=== PATIENT | female | born 1975 | race Caucasian/White ===

== ENCOUNTER 2017-11-29 11:21 | Inpatient (IN) | payer OTHER ==
[2017-11-29 13:45] VITALS: BMI 29.8
--- NOTE | 2017-11-29 14:16 | HP ---
COWS - Scale Resting Pulse: 1= [place] 81-100 Sweatin=Flushed/Facial Moisture Restless Observation: 3= Extraneous Movement Pupil Size: 1= Pupils >than Normal Bone or Joint Aches: 2= Severe Diffuse Aches Runny Nose/ Eye Tearin= Runny Nose/Eyes GI Upset > 30mins: 3= Vomiting/Diarrhea Tremor Observation: 2= Slight Tremor Visible Yawning Observation: 2= >3x During Session Anxiety or Irritability: 2=Irritable/Anxious Goose Flesh Skin: 0=Smooth Skin COWS Score: 20 CIWA Score - CIWA Score Nausea/Vomitin Muscle Tremors: 3 Anxiety: 3 Agitation: 3 Paroxysmal Sweats: 2 Orientation: 0-Oriented Tacttile Disturbances: 2-Mild Itch/Numbness/Burn Auditory Disturbances: 2-Mild Harshness/Frighten Visual Disturbances: 0-None Headache: 2-Mild CIWA-Ar Total Score: 20 Admission ROS [facility] - HPI Chief Complaint: i need help to stop using heroin,alcohol,marijuana and cocaine Allergies/Adverse Reactions: Allergies Allergy/AdvReac Type Severity Reaction Status Date / Time No Known Allergies Allergy Verified 11/29/17 14:15 History of Present Illness: this 41 years old female with long history of heroin,cocaine,marijuana and alcohol dependence,seeking detox,withdrawal symptom last detox [facility] 08/23/17 to 08/28/17 history of asthma,anxiety and depression longest period of sobriety 2 years Exam Limitations: No Limitations - Ebola screening Have you traveled outside of the country in the last 21 days: No (N) Have you had contact with anyone from an Ebola affected area: No Have you been sick,other than usual withdrawal symptoms: No Do you have a fever: No - Review of Systems Constitutional: Chills, Loss of Appetite, Malaise, Night Sweats, Changes in sleep, Weakness, Unintentional Wgt. Loss EENT: reports: Tearing, Nose Congestion Respiratory: reports: No Symptoms reported Cardiac: reports: No Symptoms Reported GI: reports: Diarrhea, Nausea, Vomiting, Abdominal cramping : reports: No Symptoms Reported Musculoskeletal: reports: Back Pain, Joint Pain, Muscle Pain, Joint Stiffness Integumentary: reports: Dryness Neuro: reports: Headache, Tremors Endocrine: reports: No Symptoms Reported Hematology: reports: No Symptoms Reported Psychiatric: reports: Anxious, Depressed Patient History - Patient Medical History Hx Anemia: No Hx Asthma: Yes Hx Chronic Obstructive Pulmonary Disease (COPD): Yes Hx Cancer: No Hx Cardiac Disorders: No Hx Congestive Heart Failure: No Hx Hypertension: No Hx Hypercholesterolemia: No Hx Pacemaker: No HX Cerebrovascular Accident: No Hx Seizures: No Hx Dementia: No Hx Diabetes: No Hx Gastrointestinal Disorders: No Hx Liver Disease: No Hx Genitourinary Disorders: No Hx Sexually Transmitted Disorders: No Hx Renal Disease (ESRD): No Hx Thyroid Disease: No Hx Human Immunodeficiency Virus (HIV): No (NEGATIVE HX last 08/09) Hx Hepatitis C: No Hx Depression: No Hx Suicide Attempt: No Hx Bipolar Disorder: No Hx Schizophrenia: No Other Medical History: no suicidal,no homicidal - Patient Surgical History Past Surgical History: Yes Hx Neurologic Surgery: No Hx Cataract Extraction: No Hx Cardiac Surgery: No Hx Lung Surgery: No Hx Breast Surgery: No Hx Breast Biopsy: No Hx Abdominal Surgery: No Hx Appendectomy: No Hx Cholecystectomy: No Hx Genitourinary Surgery: No Hx Section: Yes (x3) Hx Orthopedic Surgery: No Hx Hysterectomy: No Other Surgical History: tubal ligation 2004 Anesthesia Reaction: No - PPD History Previous Implant?: Yes Documented Results: Negative w/proof Implanted On Prior [facility] Admission?: Yes Date: 08/25/17 Results: 0mm PPD to be Administered?: No - Reproductive History Patient is a Female of Child Bearing Age (11 -55 yrs old): Yes Last Menstrual Period: 08/03/17 Patient : No - Smoking Cessation Smoking history: Current every day smoker Have you smoked in the past 12 months: Yes Aproximately how many cigarettes per day: 20 Hx Chewing Tobacco Use: No Initiated information on smoking cessation: Yes 'Breaking Loose' booklet given: 11/29/17 - Substance & Tx. History Hx Alcohol Use: Yes Hx Substance Use: Yes Substance Use Type: Alcohol, Cocaine, Heroin Hx Substance Use Treatment: Yes ([facility] 08/23/17 08/28/17) - Substances Abused Heroin Route: Inhalation Frequency: Daily Amount used: 10 BAGS Age of first use: 33 Date of Last Use: 11/28/17 Marijuana/Hashish Route: Smoking Frequency: Daily Amount used: 5 JOINTS Age of first use: 13 Date of Last Use: 11/29/17 Alcohol Route: Oral Frequency: Daily Amount used: FIFTH VODKA/12PK BEER Age of first use: 13 Date of Last Use: 11/28/17 Cocaine Route: Inhalation Frequency: Daily Amount used: 1 GRAM Age of first use: 23 Date of Last Use: 11/26/17 Family Disease History - Family Disease History Family Disease History: Other: Father (alcoholic), Brother (heroin addicton) Admission Physical Exam [facility] - Vital Signs Vital Signs: Vital Signs - 24 hr 11/29/17 13:43 Temperature 98.8 F Pulse Rate 93 H Respiratory 20 Rate Blood Pressure 114/79 - Physical General Appearance: Yes: Moderate Distress, Tremorous, Irritable, Sweating, Anxious HEENTM: Yes: Normal ENT Inspection, MOUNIKA, Pharynx Normal Respiratory: Yes: Within Normal Limits, Lungs Clear, Normal Breath Sounds, No Respiratory Distress Neck: Yes: Within Normal Limits Breast: Yes: Breast Exam Deferred Cardiology: Yes: Within Normal Limits, Regular Rhythm, Regular Rate, S1, S2 Abdominal: Yes: Within Normal Limits, Normal Bowel Sounds, Non Tender, Flat, Soft Genitourinary: Yes: Within Normal Limits Back: Yes: Muscle Spasm Musculoskeletal: Yes: full range of Motion, Back pain, Joint Stiffness, Muscle Pain Extremities: Yes: Within Normal Limits, Normal Range of Motion, Tremors Neurological: Yes: advertising supervisor II-XII NML intact, Alert, Motor Strength 5/5 Integumentary: Yes: Dry Lymphatic: Yes: Within Normal Limits - Diagnostic (1) Opioid dependence with withdrawal Current Visit: No Status: Chronic (2) Alcohol dependence with uncomplicated withdrawal Current Visit: Yes Status: Acute (3) Anxiety and depression Current Visit: Yes Status: Acute (4) Asthma Current Visit: No Status: Chronic Qualifiers: (5) Cocaine dependence Current Visit: Yes Status: Acute Qualifiers: (6) Nicotine dependence Current Visit: Yes Status: Chronic Qualifiers: Cleared for Admission [facility] - Detox or Rehab [facility] Level of Care: Medically Managed Detox Regimen/Protocol: Methadone/Librium [facility] Breath Alcohol Content Breath Alcohol Content: 0 Urine Pregancy Test - Result Urine Test Results: Negative- NO Line Present Urine Drug Screen - Results Drug Screen Negative: No Urine Drug Screen Results: THC-Marijuana, OPI-Opiates, OXY-Oxycodone
[2017-11-29] MEDS ORDERED: MAG HYDROX/AL HYDROX/SIMETH 30 ML UNIT-DOSE CUP PO PRN (14:35)
[2017-11-29] MEDS ORDERED: MAGNESIUM HYDROX 2400MG/30ML ORAL SUSPENSION 30 ML CUP PO PRN (14:35)
[2017-11-29] MEDS ORDERED: guaiFENesin/D-METHORPHAN HB 10 ML UNIT-DOSE CUPS PO PRN (14:35)
[2017-11-29] MEDS ORDERED: MENTHOL/PHENOL 1 EACH UD MM PRN (14:35)
[2017-11-29] MEDS ORDERED: IBUPROFEN 400 MG TABLET (FP) PO PRN (14:35)
[2017-11-29] MEDS ORDERED: P-EPHED 60MG/TRIPROLIDI 2.5MG TABLET PO PRN (14:35)
[2017-11-29] MEDS ORDERED: MAGNESIUM CITRATE 300 ML BOTTLE PO PRN (14:35)
[2017-11-29] MEDS ORDERED: LOPERAMIDE HCL 2 MG CAPSULE PO PRN (14:35)
[2017-11-29] MEDS ORDERED: METHADONE HCL 10 MG TABLET (FOR DETOX USE ONLY) PO ONE ×2 (15:09→23:00)
[2017-11-29] MEDS: ACETAMINOPHEN 325 MG TABLET (FP) PO PRN (15:42)
[2017-11-29] MEDS: chlordiazePOXIDE HCL 25 MG CAPSULE PO SCH ×2 (16:54→22:05)
[2017-11-29 17:02] LABS: URINE APPEARANCE CLOUDY; URINE BILIRUBIN NEGATIVE (NEGATIVE); URINE BLOOD NEGATIVE (NEGATIVE); URINE COLOR DKYELLOW; URINE GLUCOSE (UA) NEGATIVE (NEGATIVE); URINE KETONE TRACE (NEGATIVE); URINE LEUK ESTERASE NEGATIVE (NEGATIVE); URINE NITRITE NEGATIVE (NEGATIVE); URINE PROTEIN NEGATIVE (NEGATIVE)
--- NOTE | 2017-11-29 17:30 | EKG ---
Test Reason : Blood Pressure : / mmHG Vent. Rate : 084 BPM Atrial Rate : 084 BPM P-R Int : 148 ms QRS Dur : 078 ms QT Int : 372 ms P-R-T Axes : 071 049 036 degrees QTc Int : 439 ms NORMAL SINUS RHYTHM NORMAL ECG WHEN COMPARED WITH ECG OF 23-AUG-2017 12:31, NO SIGNIFICANT CHANGE WAS FOUND Confirmed by Herminio Oshea ([id number]) on 11/29/2017 5:29:52 PM Referred By: Confirmed By:Herminio Oshea
[2017-11-29] MEDS: NICOTINE POLACRILEX 2 MG GUM BUC PRN ×2 (17:41→22:08)
[2017-11-29] MEDS: ALBUTEROL SO4 18 GM HFA INHALER IH PRN (17:43)
--- NOTE | 2017-11-29 17:45 | CONSULT ---
[facility] Psychiatric Consult - Data Date of interview: 11/29/17 Admission source: [facility] Identifying data: Pt. is a 41 year old single woman, mother of three, unemployed and homeless. This is one of multiple admissions for patient. Pt. admitted to for cannabis, opiates, alcohol and cocaine dependence. Substance Abuse History: Smoking Cessation. Smoking history: Current every day smoker. Have you smoked in the past 12 months: Yes. Aproximately how many cigarettes per day: 20. Hx Chewing Tobacco Use: No. Initiated information on smoking cessation: Yes. 'Breaking Loose' booklet given: 11/29/17. - Substance & Tx. History. Hx Alcohol Use: Yes. Hx Substance Use: Yes. Substance Use Type : Alcohol, Cocaine, Heroin. Hx Substance Use Treatment: Yes ([facility] 08/23/1703/09) Medical History: Asthma Psychiatric History: Pt. denies h/o psychiatric hospitalizations, suicide attempts, and outpatient care. Pt. was in rehab at [facility] and prescribed doxepine 50mg TID and Mirtazapine 15 mg qhs. Pt. reports medication nonadherence after discharge. Reports not taking psychotrophic medications in approximately 3 months. Pt. requesting to restart medications while in detox. Pt. denies suicidal and homicidal ideation. Physical/Sexual Abuse/Trauma History: Pt. denies h/o psychiatric hospitalizations, suicide attempts, and outpatient care. Pt. Mental Status Exam - Mental Status Exam Alert and Oriented to: Time, Place, Person Cognitive Function: Good Patient Appearance: Well Groomed Mood: Hopeful, Euthymic Affect: Mood Congruent Patient Behavior: Appropriate, Cooperative Speech Pattern: Appropriate Voice Loudness: Normal Thought Process: Goal Oriented Thought Disorder: Paranoid Ideation Hallucinations: Denies Suicidal Ideation: Denies Homicidal Ideation: Denies Insight/Judgement: Poor Sleep: Poorly Appetite: Fair Muscle strength/Tone: Normal Gait/Station: Normal Psychiatric Findings - Problem List ([place] 1, 2,3) (1) Opioid dependence with withdrawal Current Visit: Yes Status: Acute (2) Alcohol dependence Current Visit: Yes Status: Chronic (3) Alcohol dependence with uncomplicated withdrawal Current Visit: Yes Status: Acute (4) Cocaine dependence Current Visit: Yes Status: Acute Qualifiers: (5) Nicotine dependence Current Visit: Yes Status: Chronic Qualifiers: (6) Substance-induced anxiety disorder Current Visit: Yes Status: Chronic (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 Detoxification provided. Mirtzapine 15mg qhs + Doxepin 25mg BID ordered. Benefits and side effects discussed. Verbal consent given. Will continue to monitor.
[2017-11-29] MEDS ORDERED: MIRTAZAPINE 15 MG TABLET (FP) PO SCH (22:00)
[2017-11-29] MEDS: CYCLOBENZAPRINE HCL 10 MG TABLET (FP) PO PRN (22:05)
[2017-11-29] MEDS: THIAMINE HCL 100 MG TABLET (FP) PO SCH (22:05)
[2017-11-29] MEDS: DOXEPIN HCL 25 MG CAPSULE PO SCH (22:05)
[2017-11-29] MEDS: cloNIDine HCL 0.1 MG TABLET PO SCH (22:05)
[2017-11-30] MEDS: CYCLOBENZAPRINE HCL 10 MG TABLET (FP) PO PRN ×2 (05:19→22:07)
[2017-11-30] MEDS: chlordiazePOXIDE HCL 25 MG CAPSULE PO SCH ×4 (05:19→22:07)
[2017-11-30] MEDS: NICOTINE POLACRILEX 2 MG GUM BUC PRN ×5 (05:21→22:09)
[2017-11-30] MEDS: chlordiazePOXIDE HCL 25 MG CAPSULE PO PRN ×3 (08:40→19:48)
--- NOTE | 2017-11-30 09:30 | PN ---
[facility] CIWA - CIWA Score Nausea/Vomitin-Mild Nausea/No Vomiting Muscle Tremors: 4-Moderate,w/Arms Extend Anxiety: 4-Mod. Anxious/Guarded Agitation: 4-Moderately Restless Paroxysmal Sweats: 1-Minimal Palms Moist Orientation: 0-Oriented Tacttile Disturbances: 1-Very Mild Itch/Numbness Auditory Disturbances: 0-None Visual Disturbances: 0-None Headache: 1-Very Mild CIWA-Ar Total Score: 16 S COWS - Scale Resting Pulse: 0= [place] 80 or Below Sweatin= Chills/Flushing Restless Observation: 1= Difficult to Sit Still Pupil Size: 0= Normal to Room Light Bone or Joint Aches: 2= Severe Diffuse Aches Runny Nose/ Eye Tearin= Runny Nose/Eyes GI Upset > 30mins: 2= Nausea/Diarrhea Tremor Observation of Outstretched Hands: 2= Slight Tremor Visible Yawning Observation: 2= >3x During Session Anxiety or Irritability: 1=Feels Anxious/Irritable Goose Flesh Skin: 3=Piloerection COWS Score: 16 [facility] Progress Note (SOAP) Subjective: sweat tremor anxiety joint aches GI upset restlessness irritable Objective: 11/30/17 09:35 Vital Signs Temperature 96.4 F L 11/30/17 06:22 Pulse Rate 79 11/30/17 06:22 Respiratory Rate 18 11/30/17 06:22 Blood Pressure 106/67 11/30/17 06:22 O2 Sat by Pulse Oximetry (%) Laboratory Last Values Urine Color Dkyellow 11/29/17 15:00 Urine Appearance Cloudy 11/29/17 15:00 Urine pH 5.0 (5.0-8.0) 11/29/17 15:00 Ur Specific [place] 1.025 (1.001-1.035) 11/29/17 15:00 Urine Protein Negative (NEGATIVE) 11/29/17 15:00 Urine Glucose (UA) Negative (NEGATIVE) 11/29/17 15:00 Urine Ketones Trace (NEGATIVE) H 11/29/17 15:00 Urine Blood Negative (NEGATIVE) 11/29/17 15:00 Urine Nitrite Negative (NEGATIVE) 11/29/17 15:00 Urine Bilirubin Negative (NEGATIVE) 11/29/17 15:00 Urine Urobilinogen 2.0 mg/dL (0.2-1.0) H 11/29/17 15:00 Ur Leukocyte Esterase Negative (NEGATIVE) 11/29/17 15:00 HIV 1&2 Antibody Screen Negative 11/29/17 15:00 HIV P24 Antigen Negative 11/29/17 15:00 lab noted Assessment: 11/30/17 09:36 withdrawal sx Plan: continue detox
[2017-11-30] MEDS ORDERED: METHADONE HCL 10 MG TABLET (FOR DETOX USE ONLY) PO SCH (10:00)
[2017-11-30 10:26] LABS: HEMATOCRIT 47.1 % (32.4-45.2); HEMOGLOBIN 15.4 GM/dL (10.7-15.3); MCH 31.2 pg (25.7-33.7); MCHC 32.8 g/dl (32.0-36.0); MEAN CELL VOLUME 95.1 fl (80-96); PLATELET COUNT 225 K/MM3 (134-434); RBC 4.95 M/mm3 (3.60-5.2); RDW 15.3 % (11.6-15.6); WHITE BLOOD COUNT 9.4 K/mm3 (4.0-10.0)
[2017-11-30] MEDS: cloNIDine HCL 0.1 MG TABLET PO SCH ×2 (10:29→22:07)
[2017-11-30] MEDS: DOXEPIN HCL 25 MG CAPSULE PO SCH ×2 (10:29→22:07)
[2017-11-30] MEDS: PRENATAL VITAMINS W/ FOLIC ACID TABLET (FP) PO SCH (10:29)
[2017-11-30 10:36] LABS: CHLORIDE 106 mmol/L (98-107); POTASSIUM 4.2 mmol/L (3.5-5.1); SODIUM 141 mmol/L (136-145)
[2017-11-30 10:45] LABS: ALBUMIN 4.1 g/dl (3.4-5.0); ALK PHOS 101 U/L (45-117); ANION GAP 10 (8-16); BILIRUBIN,TOTAL 0.5 mg/dL (0.2-1.0); BLOOD UREA NITROGEN 13 mg/dL (7-18); CALCIUM 9.5 mg/dL (8.5-10.1); CO2 25 mmol/L (21-32); CREATININE 0.9 mg/dL (0.55-1.02); GLUCOSE,RANDOM 80 mg/dL (74-106); SGOT/AST 20 U/L (15-37); SGPT/ALT 26 U/L (12-78); TOT PROT 7.1 g/dl (6.4-8.2)
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
[2017-11-30] MEDS: ALBUTEROL SO4 18 GM HFA INHALER IH PRN ×2 (16:49→22:07)
--- NOTE | 2017-11-30 17:35 | PN ---
Psychiatric Progress Note Vital Signs: Vital Signs Period Temp Pulse Resp BP Sys/[place] Pulse Ox Last 24 Hr 96.4 F-99.3 F 71-86 16-20 92-136/61-93 Date of Session: 11/30/17 Chief Complaint:: "I need another medication for sleep" HPI: Pt. admitted to N for alcohol, cocaine and opiate dependence. ROS: Unremarkable Current Medications: Active Medications Generic Name Dose Route Start Last Admin Trade Name Freq PRN Reason Stop Dose Admin Acetaminophen 650 mg 11/29/17 14:35 11/29/17 15:42 Tylenol - PO 650 mg Q4H PRN Administration FEVER Al Hydroxide/Mg Hydroxide 30 ml 11/29/17 14:35 Mylanta Oral Suspension - PO Q6H PRN DYSPEPSIA Albuterol Sulfate 2 puff 11/29/17 14:41 11/30/17 16:49 Ventolin Hfa Inhaler - IH 2 puff Q4HPO PRN Administration ASTHMA Chlordiazepoxide HCl 25 mg 11/30/17 17:00 11/30/17 16:45 Librium - PO 12/01/17 11:01 25 mg [id number] MUNIR Administration Chlordiazepoxide HCl 15 mg 12/01/17 17:00 Librium - PO 12/02/17 11:01 [id number] MUNIR Chlordiazepoxide HCl 10 mg 12/02/17 17:00 Librium - PO 12/03/17 11:01 [id number] MUNIR Chlordiazepoxide HCl 25 mg 11/29/17 14:35 11/30/17 13:49 Librium - PO 12/02/17 14:36 25 mg Q4H PRN Administration WITHDRAWAL(CONT SUBST) Clonidine 0.1 mg 11/29/17 22:00 11/30/17 10:29 Catapres - PO 0.1 mg BID MUNIR Administration Cyclobenzaprine HCl 10 mg 11/29/17 14:43 11/30/17 05:19 Flexeril - PO 10 mg TID PRN Administration MUSCLE SPASMS Doxepin HCl 25 mg 11/29/17 22:00 11/30/17 10:29 Sinequan - PO 25 mg BID MUNIR Administration Eucalyptus/Menthol/Phenol/Sorbitol 1 each 11/29/17 14:35 Cepastat Lozenge - MM Q4H PRN SORE THROAT Guaifenesin 10 ml 11/29/17 14:35 Robitussin Dm - PO Q6H PRN COUGH Hydroxyzine Pamoate 50 mg 11/29/17 14:35 Vistaril - PO Q4H PRN AGITATION Ibuprofen 400 mg 11/29/17 14:35 Motrin - PO Q6H PRN PAIN LEVEL 4-6 Loperamide HCl 4 mg 11/29/17 14:35 Imodium - PO Q6H PRN DIARRHEA Magnesium Citrate 300 ml 11/29/17 14:35 Citroma - PO Q48H PRN CONSTIPATION Magnesium Hydroxide 30 ml 11/29/17 14:35 Milk Of Magnesia - PO DAILY PRN CONSTIPATION Methadone HCl 15 mg 12/01/17 10:00 Dolophine - PO 12/02/17 10:01 DAILY MUNIR Methadone HCl 5 mg 12/04/17 06:00 Dolophine - PO 12/04/17 06:01 DAILY@0600 MUNIR Methadone HCl 10 mg 12/03/17 10:00 Dolophine - PO 12/03/17 10:01 DAILY MUNIR Nicotine Polacrilex 2 mg 11/29/17 14:35 11/30/17 16:50 Nicorette Gum - BUC 2 mg Q2H PRN Administration NICOTINE REPLACEMENT RX Multivit/Folic Acid/Iron 1 tab 11/30/17 10:00 11/30/17 10:29 Vitamins (Sjr) - PO 1 tab DAILY MUNIR Administration Pseudoephedrine/Triprolidine 1 combo 11/29/17 14:35 Actifed - PO TID PRN NASAL CONGESTION Thiamine HCl 100 mg 11/29/17 22:00 11/29/17 22:05 Vitamin B1 - PO 100 mg HS MUNIR Administration Medication(s) Change(s): Yes. Mirtazapine discontinued and Ambien 10mg qhs prn ordered for insomnia. Current Side Effect: No Lab tests ordered: No Lab tests reviewed: Yes Provider note:: Patient approached for psychiatric reconsultation. Pt reports nightmares and difficulty sleeping from taking mirtazapine. Pt. stated to expert medical writer , " It has happen before. I don't want to take it anymore." Pt. is also taking Doxepin 25mg BID. Pt. has taken Doxepin in the past and did not report nightmares to expert medical writer.Trazodone offered but patient refused due to restlessness that has occured while taking trazodone. Pt. requesting ambien 10mg. Pt. reports favorable effect from previously taking ambien. Benefits and side effects (sleep walking). Psychopharmacotherapy provided along with sleep hygiene. Verbal consent given. Ambien 10mg qhs prn ordered. Will continue to monitor. Total face to face time:: 25 Mental Status Exam - Mental Status Exam Alert and Oriented to: Time, Place, Person Cognitive Function: Good Patient Appearance: Well Groomed Mood: Hopeful Affect: Mood Congruent Patient Behavior: Cooperative Speech Pattern: Appropriate Voice Loudness: Normal Thought Process: Goal Oriented Thought Disorder: Not Present Hallucinations: Denies Suicidal Ideation: Denies Homicidal Ideation: Denies Insight/Judgement: Poor Sleep: Poorly Appetite: Fair Muscle strength/Tone: Normal Gait/Station: Normal Psychiatric Treatment Plan - Problem List (1) Opioid dependence with withdrawal Current Visit: Yes (2) Alcohol dependence Current Visit: Yes (3) Alcohol dependence with uncomplicated withdrawal Current Visit: Yes (4) Cocaine dependence Current Visit: Yes Qualifiers: (5) Nicotine dependence Current Visit: Yes Qualifiers: (6) Substance-induced anxiety disorder Current Visit: Yes (7) Substance-induced sleep disorder Current Visit: Yes
[2017-11-30] MEDS: ZOLPIDEM TARTRATE 10 MG TABLET (PARK CARE ONLY) PO PRN (22:07)
[2017-11-30] MEDS: THIAMINE HCL 100 MG TABLET (FP) PO SCH (22:07)
[2017-12-01] MEDS: chlordiazePOXIDE HCL 25 MG CAPSULE PO PRN ×3 (02:09→13:57)
[2017-12-01] MEDS: CYCLOBENZAPRINE HCL 10 MG TABLET (FP) PO PRN ×3 (03:36→22:09)
[2017-12-01] MEDS: hydrOXYzine PAMOATE 50 MG CAPSULE (FP) PO PRN ×2 (03:36→19:29)
[2017-12-01] MEDS: chlordiazePOXIDE HCL 25 MG CAPSULE PO SCH ×2 (05:19→10:30)
[2017-12-01] MEDS: NICOTINE POLACRILEX 2 MG GUM BUC PRN ×6 (05:20→22:10)
[2017-12-01] MEDS: ALBUTEROL SO4 18 GM HFA INHALER IH PRN ×2 (08:28→19:29)
--- NOTE | 2017-12-01 10:00 | PN ---
[facility] CIWA - CIWA Score Nausea/Vomitin-No Nausea/No Vomiting Muscle Tremors: 4-Moderate,w/Arms Extend Anxiety: 3 Agitation: 3 Paroxysmal Sweats: 1-Minimal Palms Moist Orientation: 0-Oriented Tacttile Disturbances: 0-None Auditory Disturbances: 0-None Visual Disturbances: 0-None Headache: 0-None Present CIWA-Ar Total Score: 11 [facility] COWS - Scale Resting Pulse: 0= [place] 80 or Below Sweatin= Chills/Flushing Restless Observation: 3= Extraneous Movement Pupil Size: 0= Normal to Room Light Bone or Joint Aches: 2= Severe Diffuse Aches Runny Nose/ Eye Tearin= Nasal Congestion GI Upset > 30mins: 1= Stomach Cramp Tremor Observation of Outstretched Hands: 2= Slight Tremor Visible Yawning Observation: 0= None Anxiety or Irritability: 2=Irritable/Anxious Goose Flesh Skin: 0=Smooth Skin COWS Score: 12 [facility] Progress Note (SOAP) Subjective: joint aches tremor sweat anxiety irritable Objective: 12/01/17 09:59 Vital Signs Temperature 97.5 F L 12/01/17 06:21 Pulse Rate 68 12/01/17 06:21 Respiratory Rate 16 12/01/17 06:21 Blood Pressure 105/65 12/01/17 06:21 O2 Sat by Pulse Oximetry (%) Laboratory Last Values WBC 9.4 K/mm3 (4.0-10.0) 11/30/17 06:00 RBC 4.95 M/mm3 (3.60-5.2) 11/30/17 06:00 Hgb 15.4 GM/dL (10.7-15.3) H 11/30/17 06:00 Hct 47.1 % (32.4-45.2) H 11/30/17 06:00 MCV 95.1 fl (80-96) 11/30/17 06:00 MCH 31.2 pg (25.7-33.7) 11/30/17 06:00 MCHC 32.8 g/dl (32.0-36.0) 11/30/17 06:00 RDW 15.3 % (11.6-15.6) 11/30/17 06:00 Plt Count 225 K/MM3 (134-434) 11/30/17 06:00 MPV 10.0 fl (7.5-11.1) 11/30/17 06:00 Sodium 141 mmol/L (136-145) 11/30/17 06:00 Potassium 4.2 mmol/L (3.5-5.1) 11/30/17 06:00 Chloride 106 mmol/L (98-107) 11/30/17 06:00 Carbon Dioxide 25 mmol/L (21-32) 11/30/17 06:00 Anion Gap 10 (8-16) 11/30/17 06:00 BUN 13 mg/dL (7-18) 11/30/17 06:00 Creatinine 0.9 mg/dL (0.55-1.02) 11/30/17 06:00 Creat Clearance w eGFR > 60 (>60) 11/30/17 06:00 Random Glucose 80 mg/dL (74-106) 11/30/17 06:00 Calcium 9.5 mg/dL (8.5-10.1) 11/30/17 06:00 Total Bilirubin 0.5 mg/dL (0.2-1.0) 11/30/17 06:00 AST 20 U/L (15-37) 11/30/17 06:00 ALT 26 U/L (12-78) 11/30/17 06:00 Alkaline Phosphatase 101 U/L (45-117) 11/30/17 06:00 Total Protein 7.1 g/dl (6.4-8.2) 11/30/17 06:00 Albumin 4.1 g/dl (3.4-5.0) 11/30/17 06:00 Urine Color Dkyellow 11/29/17 15:00 Urine Appearance Cloudy 11/29/17 15:00 Urine pH 5.0 (5.0-8.0) 11/29/17 15:00 Ur Specific [place] 1.025 (1.001-1.035) 11/29/17 15:00 Urine Protein Negative (NEGATIVE) 11/29/17 15:00 Urine Glucose (UA) Negative (NEGATIVE) 11/29/17 15:00 Urine Ketones Trace (NEGATIVE) H 11/29/17 15:00 Urine Blood Negative (NEGATIVE) 11/29/17 15:00 Urine Nitrite Negative (NEGATIVE) 11/29/17 15:00 Urine Bilirubin Negative (NEGATIVE) 11/29/17 15:00 Urine Urobilinogen 2.0 mg/dL (0.2-1.0) H 11/29/17 15:00 Ur Leukocyte Esterase Negative (NEGATIVE) 11/29/17 15:00 RPR Titer Nonreactive (NONREACTIVE) 11/30/17 06:00 HIV 1&2 Antibody Screen Negative 11/29/17 15:00 HIV P24 Antigen Negative 11/29/17 15:00 lab noted Assessment: 12/01/17 09:59 withdrawal sx Plan: continue detox
[2017-12-01] MEDS: METHADONE HCL 5 MG TABLET (FOR DETOX USE ONLY) PO SCH (10:30)
[2017-12-01] MEDS: cloNIDine HCL 0.1 MG TABLET PO SCH ×2 (10:30→22:08)
[2017-12-01] MEDS: PRENATAL VITAMINS W/ FOLIC ACID TABLET (FP) PO SCH (10:30)
[2017-12-01] MEDS: DOXEPIN HCL 25 MG CAPSULE PO SCH ×2 (10:32→22:09)
[2017-12-01] MEDS: chlordiazePOXIDE 5 MG CAPSULE PO SCH ×2 (16:43→22:09)
[2017-12-01] MEDS: ZOLPIDEM TARTRATE 10 MG TABLET (PARK CARE ONLY) PO PRN (22:08)
[2017-12-01] MEDS: THIAMINE HCL 100 MG TABLET (FP) PO SCH (22:09)
[2017-12-02] MEDS: chlordiazePOXIDE 5 MG CAPSULE PO SCH ×2 (05:46→10:29)
[2017-12-02] MEDS: NICOTINE POLACRILEX 2 MG GUM BUC PRN ×6 (05:49→21:27)
[2017-12-02] MEDS: chlordiazePOXIDE HCL 25 MG CAPSULE PO PRN ×2 (07:43→12:35)
[2017-12-02] MEDS: DOXEPIN HCL 25 MG CAPSULE PO SCH ×2 (10:28→22:09)
[2017-12-02] MEDS: cloNIDine HCL 0.1 MG TABLET PO SCH ×2 (10:28→22:09)
[2017-12-02] MEDS: METHADONE HCL 5 MG TABLET (FOR DETOX USE ONLY) PO SCH (10:29)
[2017-12-02] MEDS: CYCLOBENZAPRINE HCL 10 MG TABLET (FP) PO PRN ×2 (10:29→16:54)
[2017-12-02] MEDS: ALBUTEROL SO4 18 GM HFA INHALER IH PRN ×2 (10:29→22:12)
[2017-12-02] MEDS: PRENATAL VITAMINS W/ FOLIC ACID TABLET (FP) PO SCH (10:29)
--- NOTE | 2017-12-02 11:01 | PN ---
[facility] Progress Note (SOAP) Subjective: sweats sore throat interrupted sleep chills body aches Objective: 12/02/17 10:59 Vital Signs Temperature 97.7 F 12/02/17 06:11 Pulse Rate 71 12/02/17 06:11 Respiratory Rate 18 12/02/17 06:11 Blood Pressure 110/58 12/02/17 06:11 O2 Sat by Pulse Oximetry (%) aaox3 ambulating no acute distress Assessment: 12/02/17 10:59 withdrawal sx rochelle throat noted Plan: continue detox increase fluids throat lozenges salt and warm water gargle z-pack x 5 days
[2017-12-02] MEDS: AZITHROMYCIN 250 MG TABLET PO SCH (11:54)
[2017-12-02] MEDS: hydrOXYzine PAMOATE 50 MG CAPSULE (FP) PO PRN (15:01)
[2017-12-02] MEDS: chlordiazePOXIDE HCL 10 MG CAPSULE PO SCH ×2 (16:54→22:09)
[2017-12-02] MEDS: ZOLPIDEM TARTRATE 10 MG TABLET (PARK CARE ONLY) PO PRN (22:09)
[2017-12-02] MEDS: THIAMINE HCL 100 MG TABLET (FP) PO SCH (22:09)
[2017-12-03] MEDS: chlordiazePOXIDE HCL 10 MG CAPSULE PO SCH ×2 (04:50→10:24)
[2017-12-03] MEDS: ALBUTEROL SO4 18 GM HFA INHALER IH PRN ×3 (04:51→22:17)
[2017-12-03] MEDS: hydrOXYzine PAMOATE 50 MG CAPSULE (FP) PO PRN ×4 (06:50→23:46)
[2017-12-03] MEDS ORDERED: METHADONE HCL 10 MG TABLET (FOR DETOX USE ONLY) PO SCH (10:00)
[2017-12-03] MEDS: DOXEPIN HCL 25 MG CAPSULE PO SCH ×2 (10:24→22:15)
[2017-12-03] MEDS: PRENATAL VITAMINS W/ FOLIC ACID TABLET (FP) PO SCH (10:24)
[2017-12-03] MEDS: AZITHROMYCIN 250 MG TABLET PO SCH (10:24)
[2017-12-03] MEDS: cloNIDine HCL 0.1 MG TABLET PO SCH ×2 (10:24→22:15)
[2017-12-03] MEDS: CYCLOBENZAPRINE HCL 10 MG TABLET (FP) PO PRN ×2 (10:25→22:15)
[2017-12-03] MEDS: NICOTINE POLACRILEX 2 MG GUM BUC PRN ×5 (10:26→22:15)
--- NOTE | 2017-12-03 15:35 | PN ---
[facility] Progress Note (SOAP) Subjective: diarrhea shakes Objective: 12/03/17 15:34 A & O x 3 in day room Vital Signs Temperature 98.6 F 12/03/17 14:53 Pulse Rate 79 12/03/17 14:53 Respiratory Rate 18 12/03/17 14:53 Blood Pressure 108/66 12/03/17 14:53 O2 Sat by Pulse Oximetry (%) Assessment: 12/03/17 15:35 withdrawal sx Plan: continue detox
[2017-12-03] MEDS ORDERED: ZOLPIDEM TARTRATE 5 MG TABLET PO ONE (19:57)
[2017-12-03] MEDS: THIAMINE HCL 100 MG TABLET (FP) PO SCH (22:16)
[2017-12-03] MEDS: ACETAMINOPHEN 325 MG TABLET (FP) PO PRN (23:46)
[2017-12-04] MEDS: ALBUTEROL SO4 18 GM HFA INHALER IH PRN (05:54)
[2017-12-04] MEDS: NICOTINE POLACRILEX 2 MG GUM BUC PRN (05:54)
[2017-12-04] MEDS ORDERED: METHADONE HCL 5 MG TABLET (FOR DETOX USE ONLY) PO SCH (06:00)
[2017-12-04 06:39] VITALS: BP 133/63; PULSE 73; TEMP 98.4
[2017-12-04] MEDS: AZITHROMYCIN 250 MG TABLET PO SCH (09:07)
[2017-12-04] MEDS: DOXEPIN HCL 25 MG CAPSULE PO SCH (09:07)
[2017-12-04] MEDS: PRENATAL VITAMINS W/ FOLIC ACID TABLET (FP) PO SCH (09:08)
[2017-12-04] MEDS: cloNIDine HCL 0.1 MG TABLET PO SCH (09:08)
--- NOTE | 2017-12-04 09:25 | DS ---
[facility] Detox Discharge Summary Admission Date: 11/29/17 Discharge Date: 12/04/17 - History Present History: Alcohol Dependence, Opioid Dependence - Physical Exam Results Vital Signs: Vital Signs Temperature 98.4 F 12/04/17 06:00 Pulse Rate 73 12/04/17 06:00 Respiratory Rate 18 12/04/17 06:00 Blood Pressure 133/63 12/04/17 06:00 O2 Sat by Pulse Oximetry (%) Pertinent Admission Physical Exam Findings: withdrawal sx Vital Signs Temperature 98.4 F 12/04/17 06:00 Pulse Rate 73 12/04/17 06:00 Respiratory Rate 18 12/04/17 06:00 Blood Pressure 133/63 12/04/17 06:00 O2 Sat by Pulse Oximetry (%) Laboratory Last Values WBC 9.4 K/mm3 (4.0-10.0) 11/30/17 06:00 RBC 4.95 M/mm3 (3.60-5.2) 11/30/17 06:00 Hgb 15.4 GM/dL (10.7-15.3) H 11/30/17 06:00 Hct 47.1 % (32.4-45.2) H 11/30/17 06:00 MCV 95.1 fl (80-96) 11/30/17 06:00 MCH 31.2 pg (25.7-33.7) 11/30/17 06:00 MCHC 32.8 g/dl (32.0-36.0) 11/30/17 06:00 RDW 15.3 % (11.6-15.6) 11/30/17 06:00 Plt Count 225 K/MM3 (134-434) 11/30/17 06:00 MPV 10.0 fl (7.5-11.1) 11/30/17 06:00 Sodium 141 mmol/L (136-145) 11/30/17 06:00 Potassium 4.2 mmol/L (3.5-5.1) 11/30/17 06:00 Chloride 106 mmol/L (98-107) 11/30/17 06:00 Carbon Dioxide 25 mmol/L (21-32) 11/30/17 06:00 Anion Gap 10 (8-16) 11/30/17 06:00 BUN 13 mg/dL (7-18) 11/30/17 06:00 Creatinine 0.9 mg/dL (0.55-1.02) 11/30/17 06:00 Creat Clearance w eGFR > 60 (>60) 11/30/17 06:00 Random Glucose 80 mg/dL (74-106) 11/30/17 06:00 Calcium 9.5 mg/dL (8.5-10.1) 11/30/17 06:00 Total Bilirubin 0.5 mg/dL (0.2-1.0) 11/30/17 06:00 AST 20 U/L (15-37) 11/30/17 06:00 ALT 26 U/L (12-78) 11/30/17 06:00 Alkaline Phosphatase 101 U/L (45-117) 11/30/17 06:00 Total Protein 7.1 g/dl (6.4-8.2) 11/30/17 06:00 Albumin 4.1 g/dl (3.4-5.0) 11/30/17 06:00 Urine Color Dkyellow 11/29/17 15:00 Urine Appearance Cloudy 11/29/17 15:00 Urine pH 5.0 (5.0-8.0) 11/29/17 15:00 Ur Specific [place] 1.025 (1.001-1.035) 11/29/17 15:00 Urine Protein Negative (NEGATIVE) 11/29/17 15:00 Urine Glucose (UA) Negative (NEGATIVE) 11/29/17 15:00 Urine Ketones Trace (NEGATIVE) H 11/29/17 15:00 Urine Blood Negative (NEGATIVE) 11/29/17 15:00 Urine Nitrite Negative (NEGATIVE) 11/29/17 15:00 Urine Bilirubin Negative (NEGATIVE) 11/29/17 15:00 Urine Urobilinogen 2.0 mg/dL (0.2-1.0) H 11/29/17 15:00 Ur Leukocyte Esterase Negative (NEGATIVE) 11/29/17 15:00 RPR Titer Nonreactive (NONREACTIVE) 11/30/17 06:00 HIV 1&2 Antibody Screen Negative 11/29/17 15:00 HIV P24 Antigen Negative 11/29/17 15:00 lab noted - Treatment Hospital Course: Detox Protocol Followed, Detoxed Safely, Responded well, Discharged Condition Good, Rehab Referral Accepted Patient has Accepted a Rehab Referral to: as per counselor arranged - Medication Discharge Medications: Ambulatory Orders Albuterol Sulfate Inhaler - [Ventolin HFA Inhaler -] 2 inh IH Q4HPO PRN #1 cartridge 12/04/17 - Diagnosis (1) Alcohol dependence with uncomplicated withdrawal Current Visit: Yes Status: Acute (2) Asthma Current Visit: Yes Status: Chronic Qualifiers: Asthma severity: mild Asthma persistence: intermittent Asthma complication type: with status asthmaticus Qualified Code(s): J45.22 - Mild intermittent asthma with status asthmaticus (3) Opioid dependence with withdrawal Current Visit: Yes Status: Acute - AMA Did Patient Leave Against Medical Advice: No
== END 2017-12-04 09:11 | disposition home or self-care (01) | DRG 773 ==
LOC: YASAS 11:21 → Y6N 14:53
PROVIDERS: ADMIT Internal Medicine; ATTEND Internal Medicine
PROC: HZ2ZZZZ Detoxification Services for Substance Abuse Treatment (ICD-10-PCS; principal; 2017-11-29)
DX: F11.23 Opioid dependence with withdrawal (principal); F10.230 Alcohol dependence with withdrawal, uncomplicated; F14.20 Cocaine dependence, uncomplicated; F17.210 Nicotine dependence, cigarettes, uncomplicated; F19.280 Other psychoactive substance dependence with psychoactive substance-induced anxiety disorder; F19.282 Other psychoactive substance dependence with psychoactive substance-induced sleep disorder; F41.8 Other specified anxiety disorders; J45.22 Mild intermittent asthma with status asthmaticus; R07.0 Pain in throat
CPT/HCPCS: 36415; 80053; 81003; 85027; 86593; 87389; 93005; 93010; J0735